=== PATIENT | female | born 1990 | race Two or more races ===

== ENCOUNTER 2022-07-15 12:50 | Emergency (ER) | payer OTHER ==
[~2022-07-15] VITALS: Ht 167.6 cm; Wt 102.1 kg
--- NOTE | 2022-07-15 13:01 | NUR ---
TO ER BED 11, C/O LLQ ABD PAIN ON & OFF X 3 MOS PER PT. -N/V/D, AAOX3, BREATHING EVEN AND NON LABORED, CONNECTED TO MONITOR
--- NOTE | 2022-07-15 13:06 | NUR ---
URINE COLLECTED AND SENT TO LAB
[2022-07-15 13:28] LABS: BASOPHILS % (AUTO) 0.3 % (0.0-2.0); EOSINOPHILS % (AUTO) 1.5 % (0.0-6.0); HEMATOCRIT 37 % (33-45); HEMOGLOBIN 12.2 g/dL (11.5-14.8); LYMPHOCYTES # (AUTO) 1.1 K/uL (0.8-4.8); LYMPHOCYTES % (AUTO) 29.5 % (20.0-44.0); MEAN CORPUSCULAR HGB CONC 33 g/dl (31.0-36.0); MEAN CORPUSCULAR VOLUME 80 fL (82-100); MONOCYTES # (AUTO) 0.3 K/uL (0.1-1.30); MONOCYTES % (AUTO) 8.7 % (2.0-12.0); NEUTROPHILS # (AUTO) 2.3 K/uL (1.8-8.9); PLATELET COUNT (AUTO) 167 K/uL (150-450); RED BLOOD CELL COUNT(AUTO) 4.61 MIL/uL (4.0-5.2); WHITE BLOOD COUNT (AUTO) 3.9 K/uL (4.3-11.0)
[2022-07-15 13:42] LABS: BILIRUBIN,URINE NEGATIVE (NEGATIVE); COLOR,URINE YELLOW (YELLOW); LEUKOCYTE ESTERASE ,URINE NEGATIVE (NEGATIVE); NITRITE, URINE NEGATIVE (NEGATIVE); PROTEIN,URINE NEGATIVE (NEGATIVE); UGLUCOSE NEGATIVE (NEGATIVE); UROBILINOGEN,URINE 0.2 EU/dL (0.2)
[2022-07-15 13:46] LABS: CALCIUM, SERUM 8.3 mg/dL (8.5-10.1); CREATININE 1.1 mg/dL (0.6-1.3); POTASSIUM 3.5 mmol/L (3.5-5.1)
[2022-07-15 13:52] LABS: ALBUMIN 3.3 g/dL (3.4-5.0); BILIRUBIN,DIRECT 0.1 mg/dL (0.0-0.2); BILIRUBIN,TOTAL 0.5 mg/dL (0.2-1.0); TOTAL PROTEIN, SERUM 8.6 g/dL (6.4-8.2)
[2022-07-15 13:58] LABS: BACTERIA,URINE Few /HPF (None Seen); RBC,URINE 0-2 /HPF (0-2); SQUAMOUS EPITHELIAL CELL,UR Few /HPF (None Seen)
[2022-07-15] MEDS ORDERED: NAPR-1192 PO (15:05)
[2022-07-15] MEDS ORDERED: OXYC5TAB3 PO (15:05)
[2022-07-15] MEDS ORDERED: HYDROCODONE/APAP 5/325MG TABLET ONE (16:16)
[2022-07-15 16:26] VITALS: BP 127/68
[2022-07-15] MEDS ORDERED: HYDROCODONE/APAP 7.5/325MG 1 EACH TABLET PO ONE (16:30)
[2022-07-15] MEDS ORDERED: HYDROCODONE/APAP 5/325MG TABLET PO ONE (16:30)
== END 2022-07-15 16:26 | disposition home or self-care (01) ==
LOC: ER 12:54
DX: N80.8 Other endometriosis (principal); R10.32 Left lower quadrant pain
CPT/HCPCS: 36415; 76856-TC; 76882; 80048-TC; 80076-TC; 81001; 84703-TC; 85025-TC; 85730-TC